=== PATIENT | female | born 1990 | race Two or more races ===

== ENCOUNTER 2024-07-03 18:30 | Emergency (ER) | payer MEDICAID ==
[~2024-07-03] VITALS: Ht 160 cm; Wt 66.0 kg
[2024-07-03 20:29] VITALS: PULSE 83; RESP 19; TEMP 98.4; O2SAT 99
[2024-07-03] MEDS: KETOROLAC TROMETH 60MG/2ML VIAL IM ONE (20:29)
[2024-07-03] MEDS: OXYCODONE W/ ACETAMINOPHEN 5/325MG TABLET PO ONE (20:30)
--- NOTE | 2024-07-03 20:37 | DVH ---
INDICATION: left knee pain/injury recent fx COMPARISON: None TECHNIQUE: CT of the left knee was performed without contrast. Volume transverse images were obtained and reconstructed in multiple planes using bone and soft tissue algorithms. All CT scans at this medical facility are performed using dose modulation techniques as appropriate t o a performed exam including the following: Automated exposure control was utilized; adjustment of th e MA and/or KV according to patient size; and use of iterative reconstruction technique. FINDINGS: Normal mineralization and alignment. Joint spaces preserved. There is an obliquely oriented fracture of the proximal fibula with some callus formation noted. There is subacute fracturing of the lateral aspect of the lateral tibial plateau with fracture lines remaining evident although bony bridging is present. No new appearing fracture seen. There is a small knee joint effusion. The ligaments and te ndons are grossly normal although not optimally evaluated by CT. The muscle bundles about the left kn ee are unremarkable. IMPRESSION: 1. Obliquely oriented fracture of the proximal fibula with some callus formation noted indicative of healing process. 2. Subacute fracture of the lateral aspect of the lateral tibial plateau with fracture lines remainin g evident although bony bridging is present. 3. No new acute fracture. 4. Small knee joint effusion.
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
[2024-07-03 22:02] VITALS: BP 148/95
[2024-07-03] MEDS ORDERED: HYDR-4902 PO (22:10)
== END 2024-07-03 22:09 | disposition home or self-care (01) ==
LOC: ER 18:30
DX: S82.392A Other fracture of lower end of left tibia, initial encounter for closed fracture (principal); Z79.899 Other long term (current) drug therapy; X50.1XXA Overexertion from prolonged static or awkward postures, initial encounter; Y93.89 Activity, other specified; Y92.89 Other specified places as the place of occurrence of the external cause; Y99.8 Other external cause status
CPT/HCPCS: 29505; 73700; 96372; 99285; J1885